=== PATIENT | female | born 1970 | race Caucasian/White ===

== ENCOUNTER 2025-03-23 10:09 | Outpatient (CLI) | payer BC, SELFPAY ==
[2025-03-26 15:04] LABS: Pap Test Digital Imaging Done
[2025-03-30 05:45] LABS: HPV Source Cervical
== END 2025-03-23 10:10 | disposition home or self-care (01) ==
LOC: NFLDREF 10:10
PROVIDERS: PCP Family Medicine; Visit Provider Obstetrics & Gynecology
DX: R87.615 Unsatisfactory cytologic smear of cervix (principal); N95.2 Postmenopausal atrophic vaginitis
CPT/HCPCS: 87624; 87625; 88141; 88142; 88175